=== PATIENT | male | born 1940 | race Caucasian/White ===

== ENCOUNTER 2023-06-17 10:25 | Emergency (ER) | payer OTHER ==
[~2023-06-17] VITALS: Ht 172.7 cm; Wt 88.5 kg
[2023-06-17 11:07] LABS: BASOPHILS ABSOLUTE AUTO 0.04 K/mm3 (0.00-0.23); BASOPHILS PERCENT AUTO 1 % (0-2); EOSINOPHILS ABSOLUTE AUTO 0.15 K/mm3 (0.00-0.68); EOSINOPHILS PERCENT AUTO 2 % (0-6); Hematocrit 36.4 % (37.0-53.0); Hemoglobin 11.9 g/dL (13.5-17.5); IMMATURE GRAN ABSOLUTE AUTO 0.04 K/mm3 (0.00-0.10); IMMATURE GRAN PERCENT AUTO 1 % (0-1); LYMPHOCYTES PERCENT AUTO 22 % (21-46); MONOCYTES ABSOLUTE AUTO 0.52 K/mm3 (0.16-1.47); MONOCYTES PERCENT AUTO 8 % (4-13); Mean Corpuscular HGB 31.5 pg (26.0-34.0); Mean Corpuscular HGB Conc 32.7 g/dL (31.5-36.5); Mean Corpuscular Volume 96 fL (80-100); Mean Platelet Volume 9.7 fL (9.1-12.4); NEUTROPHILS ABSOLUTE AUTO 4.48 K/mm3 (1.96-9.15); NEUTROPHILS PERCENT AUTO 67 % (41-73); Platelet Count 225 K/mm3 (150-400); RDW Coefficient Variation 13.7 % (11.7-14.2); RDW Standard Deviation 48.6 fL (35.1-46.3); Red Blood Cell Count 3.78 M/mm3 (4.30-5.90); White Blood Cell Count 6.73 K/mm3 (4.00-11.30)
[2023-06-17 13:24] LABS: Source, Urine Voided
[2023-06-17] MEDS ORDERED: ATOR10 PO (13:25)
[2023-06-17 13:29] LABS: Appearance, Urine Clear (Clear); Bilirubin, Urine Neg (Neg); Blood, Urine Neg (Neg); Color, Urine Amber (P-Yellow); Glucose Qualitative, Urine Neg (Neg); Ketones, Urine Neg (Neg); Leukocyte Esterase, Urine Neg (Neg); Nitrite, Urine Neg (Neg); Protein, Urine 2+ (Neg); Urobilinogen, Urine 1+ (Normal)
[2023-06-17 13:42] LABS: Bacteria Few /hpf; Mucus Light (0-Heavy); Red Blood Cells, Urine 0-2 /hpf (0-2); Squamous Epithelial Cells Few /hpf (Few)
[2023-06-17 14:03] LABS: Albumin, Blood 3.3 g/dL (3.4-5.0); Albumin/Globulin Ratio 0.9 (0.8-1.8); Bilirubin, Total 0.8 mg/dL (0.1-1.0); Bun/Creatinine Ratio 15.8 (12.0-20.0); Calcium, Blood 8.7 mg/dL (8.5-10.1); Creatinine, Blood 1.33 mg/dL (0.60-1.20); Globulin, Blood 3.7 g/dL (2.2-4.0); Thyroid Stimulating Hormone 0.68 uIU/mL (0.360-4.800)
[2023-06-17 14:35] VITALS: BP 136/95
== END 2023-06-17 14:36 | disposition home or self-care (01) ==
LOC: ER 10:25
PROVIDERS: Emergency Medicine
DX: R41.0 Disorientation, unspecified (principal); Z79.899 Other long term (current) drug therapy
CPT/HCPCS: 80053; 81001; 84443; 85025

== ENCOUNTER 2023-06-21 10:09 | Emergency (ER) | payer OTHER ==
[~2023-06-21] VITALS: Ht 172.7 cm; Wt 88.5 kg
[~2023-06-21 10:09] MED LIST: ATOR10 PO
[2023-06-21 10:39] LABS: BASOPHILS ABSOLUTE AUTO 0.05 K/mm3 (0.00-0.23); BASOPHILS PERCENT AUTO 0 % (0-2); EOSINOPHILS ABSOLUTE AUTO 0.08 K/mm3 (0.00-0.68); EOSINOPHILS PERCENT AUTO 1 % (0-6); Hematocrit 35.9 % (37.0-53.0); Hemoglobin 11.6 g/dL (13.5-17.5); IMMATURE GRAN ABSOLUTE AUTO 0.06 K/mm3 (0.00-0.10); IMMATURE GRAN PERCENT AUTO 1 % (0-1); LYMPHOCYTES ABSOLUTE AUTO 1.34 K/mm3 (0.84-5.20); LYMPHOCYTES PERCENT AUTO 12 % (21-46); MONOCYTES ABSOLUTE AUTO 1.02 K/mm3 (0.16-1.47); MONOCYTES PERCENT AUTO 9 % (4-13); Mean Corpuscular HGB 31.4 pg (26.0-34.0); Mean Corpuscular HGB Conc 32.3 g/dL (31.5-36.5); Mean Corpuscular Volume 97 fL (80-100); Mean Platelet Volume 9.7 fL (9.1-12.4); NEUTROPHILS ABSOLUTE AUTO 8.65 K/mm3 (1.96-9.15); NEUTROPHILS PERCENT AUTO 77 % (41-73); Platelet Count 237 K/mm3 (150-400); RDW Standard Deviation 49.7 fL (35.1-46.3)
[2023-06-21 10:55] LABS: Source, Urine Clean Catch
[2023-06-21 11:00] LABS: Albumin, Blood 3.2 g/dL (3.4-5.0); Albumin/Globulin Ratio 0.9 (0.8-1.8); Bilirubin, Total 0.6 mg/dL (0.1-1.0); Calcium, Blood 8.7 mg/dL (8.5-10.1); Creatinine, Blood 1.2 mg/dL (0.60-1.20); Globulin, Blood 3.6 g/dL (2.2-4.0); Potassium, Blood 4.2 mmol/L (3.5-5.5); Total Protein, Blood 6.8 g/dL (6.4-8.2)
[2023-06-21 11:02] LABS: Bilirubin, Urine Neg (Neg); Blood, Urine Neg (Neg); Glucose Qualitative, Urine Neg (Neg); Ketones, Urine Neg (Neg); Leukocyte Esterase, Urine Neg (Neg); Nitrite, Urine Neg (Neg); Protein, Urine 2+ (Neg); Urobilinogen, Urine 1+ (Normal)
[2023-06-21 12:06] LABS: Appearance, Urine Hazy (Clear); Bacteria Not Seen /hpf; Color, Urine Yellow (P-Yellow); Red Blood Cells, Urine Not Seen /hpf (0-2); Squamous Epithelial Cells Rare /hpf (Few); White Blood Cells, Urine Not Seen /hpf (0-5)
[2023-06-21 14:23] VITALS: BP 171/79
== END 2023-06-21 14:20 | disposition home or self-care (01) ==
LOC: ER 10:09
PROVIDERS: Emergency Medicine
DX: R53.81 Other malaise (principal); D64.9 Anemia, unspecified; W18.30XA Fall on same level, unspecified, initial encounter; Z79.899 Other long term (current) drug therapy
CPT/HCPCS: 71045; 80053; 81001; 82550; 84484; 85025; 93005; 93010; 96374; 99285-25; J0360

== ENCOUNTER 2023-08-23 12:54 | Emergency (ER) | payer OTHER ==
[~2023-08-23] VITALS: Ht 172.7 cm; Wt 88.5 kg
[2023-08-23 14:27] LABS: BASOPHILS ABSOLUTE AUTO 0.04 K/mm3 (0.00-0.23); BASOPHILS PERCENT AUTO 1 % (0-2); EOSINOPHILS ABSOLUTE AUTO 0.12 K/mm3 (0.00-0.68); EOSINOPHILS PERCENT AUTO 2 % (0-6); Hematocrit 29.4 % (37.0-53.0); Hemoglobin 9.2 g/dL (13.5-17.5); IMMATURE GRAN ABSOLUTE AUTO 0.02 K/mm3 (0.00-0.10); IMMATURE GRAN PERCENT AUTO 0 % (0-1); LYMPHOCYTES ABSOLUTE AUTO 1.14 K/mm3 (0.84-5.20); LYMPHOCYTES PERCENT AUTO 22 % (21-46); MONOCYTES ABSOLUTE AUTO 0.41 K/mm3 (0.16-1.47); MONOCYTES PERCENT AUTO 8 % (4-13); Mean Corpuscular HGB 31.7 pg (26.0-34.0); Mean Corpuscular HGB Conc 31.3 g/dL (31.5-36.5); Mean Corpuscular Volume 101 fL (80-100); Mean Platelet Volume 10.5 fL (9.1-12.4); NEUTROPHILS ABSOLUTE AUTO 3.44 K/mm3 (1.96-9.15); NEUTROPHILS PERCENT AUTO 67 % (41-73); Platelet Count 162 K/mm3 (150-400); RDW Coefficient Variation 15.8 % (11.7-14.2); RDW Standard Deviation 58.5 fL (35.1-46.3); White Blood Cell Count 5.17 K/mm3 (4.00-11.30)
[2023-08-23 14:56] LABS: Albumin, Blood 3.1 g/dL (3.4-5.0); Albumin/Globulin Ratio 0.9 (0.8-1.8); Bilirubin, Total 0.2 mg/dL (0.1-1.0); Bun/Creatinine Ratio 24.2 (12.0-20.0); Creatinine, Blood 1.49 mg/dL (0.60-1.20); Globulin, Blood 3.3 g/dL (2.2-4.0); Potassium, Blood 4.3 mmol/L (3.5-5.5); Total Protein, Blood 6.4 g/dL (6.4-8.2)
[2023-08-23 15:25] LABS: Source, Urine Clean Catch
[2023-08-23 15:29] LABS: Appearance, Urine Clear (Clear); Bilirubin, Urine Neg (Neg); Blood, Urine Neg (Neg); Color, Urine Yellow (P-Yellow); Glucose Qualitative, Urine Neg (Neg); Ketones, Urine Neg (Neg); Leukocyte Esterase, Urine Neg (Neg); Nitrite, Urine Neg (Neg); Protein, Urine Neg (Neg); Specific Gravity, Urine 1.015 (1.003-1.022); Urobilinogen, Urine NORM (Normal)
[2023-08-23 16:30] VITALS: BP 125/56
== END 2023-08-23 16:36 | disposition home or self-care (01) ==
LOC: ER 12:54
PROVIDERS: Student in an Organized Health Care Education/Training Program
DX: R41.0 Disorientation, unspecified (principal); D64.9 Anemia, unspecified; N18.9 Chronic kidney disease, unspecified; Z79.899 Other long term (current) drug therapy
CPT/HCPCS: 80053; 81003; 85025; 93005; 93010; 99285-25

== ENCOUNTER 2024-03-19 10:25 | Inpatient (IN) | payer OTHER ==
[2024-03-19] VITALS (9 sets, daily range): BP systolic 97–134; BP diastolic 53–83
[~2024-03-19] VITALS: Ht 188 cm; Wt 105.5 kg
[~2024-03-19 10:25] MED LIST changes: +ALBU90OI INH; +ALLO300 PO; +AMLO5 PO; +B-12500 MC2 PO; +CAPSAICIN60 G1 TOP; +DULERA 100 MCG/13 GM INH; +HUMALOG KW100 UNIT/1 SC; +METF500 PO; +MULTI-VITAMIN1 EAC2 PO; +POTA10T PO; +QUET25 PO; +SENNA LAXATIVE8.6 MG PO; +TORSE20 PO; +[UNRECOGNIZED DRUG - CODE] TOP
[2024-03-19 11:04] LABS: BASOPHILS ABSOLUTE AUTO 0.04 K/mm3 (0.00-0.23); BASOPHILS PERCENT AUTO 1 % (0-2); EOSINOPHILS PERCENT AUTO 5 % (0-6); Hematocrit 32.8 % (37.0-53.0); Hemoglobin 10.2 g/dL (13.5-17.5); IMMATURE GRAN ABSOLUTE AUTO 0.02 K/mm3 (0.00-0.10); IMMATURE GRAN PERCENT AUTO 0 % (0-1); LYMPHOCYTES ABSOLUTE AUTO 0.92 K/mm3 (0.84-5.20); LYMPHOCYTES PERCENT AUTO 16 % (21-46); MONOCYTES ABSOLUTE AUTO 0.59 K/mm3 (0.16-1.47); MONOCYTES PERCENT AUTO 10 % (4-13); Mean Corpuscular HGB 31.8 pg (26.0-34.0); Mean Corpuscular HGB Conc 31.1 g/dL (31.5-36.5); Mean Corpuscular Volume 102 fL (80-100); Mean Platelet Volume 10.1 fL (9.1-12.4); NEUTROPHILS ABSOLUTE AUTO 3.87 K/mm3 (1.96-9.15); NEUTROPHILS PERCENT AUTO 68 % (41-73); Platelet Count 111 K/mm3 (150-400); RDW Coefficient Variation 16.5 % (11.7-14.2); RDW Standard Deviation 61.7 fL (35.1-46.3); Red Blood Cell Count 3.21 M/mm3 (4.30-5.90); White Blood Cell Count 5.74 K/mm3 (4.00-11.30)
[2024-03-19] MEDS ORDERED: CefTRIAXone Sodium 1,000 MG in NS 100 ML IV ONE (11:15)
[2024-03-19] MEDS ORDERED: Azithromycin 500 MG in NS 250 ML IV ONE (11:15)
[2024-03-19 11:37] LABS: Albumin/Globulin Ratio 0.9 (0.8-1.8); Bilirubin, Total 0.4 mg/dL (0.1-1.0); Bun/Creatinine Ratio 30.3 (12.0-20.0); Calcium, Blood 8.9 mg/dL (8.5-10.1); Creatinine, Blood 1.55 mg/dL (0.60-1.20); Globulin, Blood 3.5 g/dL (2.2-4.0); Potassium, Blood 5.1 mmol/L (3.5-5.5); Total Protein, Blood 6.5 g/dL (6.4-8.2)
[2024-03-19] MEDS ORDERED: OxyCODONE HCL 5 MG TAB PO PRN (13:00)
[2024-03-19] MEDS ORDERED: Naloxone HCl 0.4MG / ML 1ML Vial IV PRN (13:00)
[2024-03-19] MEDS ORDERED: Ondansetron HCl 2 MG / ML 2ML Vial IV PRN (13:00)
[2024-03-19] MEDS ORDERED: Acetaminophen 325 MG TABLET PO PRN (13:00)
[2024-03-19] MEDS ORDERED: Albuterol HFA200 ACT/6.7 GM INH INH PRN (13:10)
[2024-03-19 13:42] LABS: Source, Urine Foley catheter
[2024-03-19 13:50] LABS: Appearance, Urine Clear (Clear); Bilirubin, Urine Neg (Neg); Blood, Urine 1+ (Neg); Glucose Qualitative, Urine Neg (Neg); Ketones, Urine Neg (Neg); Leukocyte Esterase, Urine 1+ (Neg); Nitrite, Urine Neg (Neg); Protein, Urine Neg (Neg); Urobilinogen, Urine NORM (Normal)
[2024-03-19] MEDS ORDERED: Lactated Ringer's 1,000 ML IV SCH ×2 (13:50→20:45)
[2024-03-19 14:07] LABS: Color, Urine Pale Yellow (P-Yellow)
[2024-03-19 14:08] LABS: Bacteria Few /hpf; Red Blood Cells, Urine 0-2 /hpf (0-2); Squamous Epithelial Cells Not Seen /hpf (Few)
[2024-03-19] MEDS ORDERED: AZIT200SU PO (15:06)
[2024-03-19] MEDS ORDERED: AMOCLA875 PO (15:07)
[2024-03-19] MEDS ORDERED: Carvedilol12.5 MG PO (15:09)
[2024-03-19] MEDS ORDERED: Fosinopril Sodi20 MG PO (15:09)
[2024-03-19] MEDS ORDERED: LACT PO (15:10)
[2024-03-19] MEDS ORDERED: OMEP20ER PO (15:11)
[2024-03-19] MEDS ORDERED: Acetaminophen650 M1 PO (15:11)
[2024-03-19] MEDS ORDERED: ALBU2.5V5 INH (15:13)
[2024-03-19] MEDS ORDERED: Albuterol 2.5 MG/3 ML VIAL INH PRN (15:45)
--- NOTE | 2024-03-19 16:16 | NUR ---
arrival to pcu patient arrived to pcu at 1435. patient transfered to pcu bed via slider sheet. per report patient is bedbound and uses a lift. has home lift under patient and removed and put in home belongings. patient is able to tell me he is at the hospital, in [place], but does not know why he is here, oriented x3. patient is sleepy when arriving but able to communicate, patient becoming more lethargic and stating he is cold. patient is diaphortic/clammy and cool to the touch. temporal temperature taken and read 92.5. rectal probe in place and temperature is reading 91.5 for core temperature. warm blankets in place and bear hugger in place. patient lips are purple in apperance. spo2 >90% on 3l intitially and have titrated to 5l nc. md calderon and team are aware of patient temperature, blood pressure and heart rate-tele sinusbrady 40s. current temperature is 92.8 with rectal probe. 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 see admit shift assessment for further detials echo is currently being done. plan of care up to date at this time
[2024-03-19] MEDS ORDERED: Atropine Sulfate 0.1 MG/ML 10ML SYR IV PRN (16:20)
[2024-03-19] MEDS ORDERED: Capsaicin 0.025% Cream TOP PRN (16:35)
[2024-03-19] MEDS ORDERED: Midodrine 5 MG Tab PO PRN (16:35)
[2024-03-19] MEDS ORDERED: Mometasone/Formoterol MDI 100/5 mcg 13 GM INH SCH (16:40)
[2024-03-19] MEDS ORDERED: Furosemide 10 MG/ML 4ML Vial IV SCH (17:00)
--- NOTE | 2024-03-19 17:21 | NUR ---
SHIFT SUMMARY patient temperature continues to improve with bear hugger in place. currently at 94.4. see previous note. plan remains up to date and no acute changes since previous note
[2024-03-19] MEDS ORDERED: Furosemide 40 MG Tab PO SCH (18:00)
[2024-03-19] MEDS ORDERED: Lactobacil 2-S.Thermo-Bifido 1 1 Cap PO SCH (21:00)
[2024-03-19] MEDS ORDERED: Docusate Sodium 100 MG Cap PO SCH (21:00)
[2024-03-19] MEDS ORDERED: QUEtiapine Fumarate 25 MG Tab PO SCH (21:00)
[2024-03-19] MEDS ORDERED: Lisinopril 10 MG Tab PO SCH (21:00)
[2024-03-20] VITALS (11 sets, daily range): BP systolic 129–167; BP diastolic 56–84
[2024-03-20] MEDS ORDERED: D5W-NS 1,000 ML IV SCH (01:05)
[2024-03-20 05:42] LABS: Albumin, Blood 2.8 g/dL (3.4-5.0); Albumin/Globulin Ratio 0.9 (0.8-1.8); Bilirubin, Total 0.4 mg/dL (0.1-1.0); Bun/Creatinine Ratio 26.8 (12.0-20.0); Calcium, Blood 8.6 mg/dL (8.5-10.1); Creatinine, Blood 1.64 mg/dL (0.60-1.20); Globulin, Blood 3.2 g/dL (2.2-4.0); Potassium, Blood 4.5 mmol/L (3.5-5.5)
[2024-03-20] MEDS ORDERED: Pantoprazole Sodium 40 MG Injection IV SCH (06:00)
[2024-03-20] MEDS ORDERED: Omeprazole 20 MG CapCR PO SCH (06:00)
--- NOTE | 2024-03-20 07:00 | NUR ---
ASSUME CARE: I have assumed care of this patient.
--- NOTE | 2024-03-20 07:25 | NUR ---
SHIFT SUMMARY AT BEGINNING OF SHIFT, PT VERY LETHARGIC, BRIEFLY OPENING EYES TO SOUND. PT NOT FOLLOWING COMMANDS, ORIENTED X0. THE SHIFT WENT ON, PT BECAME MORE ALERT, EYES OPENING SPONTANEOUSLY AND PT BEGINNING TO FOLLOW COMMANDS. PT'S SPEECH IS GARBLED/MUMBLED AT TIMES AND ANSWERS ARE NOT ALWAYS APPROPRIATE TO WHAT IS BEING ASKED. PT REORIENTED NEEDED. AT END OF SHIFT, PT ORIENTED X2; TO SELF AND PLACE. VSS; SBP 120-140'S, SR WITH RATE IN 60-70'S, TEMP 98.4-98.6, PT ON 3 LMP NC T/O SHIFT. O2 INCREASED TO 5 LPM WITH ACTIVITY OR DURING CARE IF NEEDED. MARTINEZ IN PLACE AND DRAINING TO GRAVITY; 2300 MLS UOP THIS SHIFT. NO BM, ATTENDS IN PLACE. COCCYX WITH REDNESS AND SMALL EXORIATION; MEPILEX PLACED. 0000 CBG 69; RESIDENT NOTIFIED. NEW ORDERS FOR D5WNS AT 100 MLS/HR. CBG MAINTAINING IN 80'S DURING SHIFT. PT NOT TOLERATING MUCH PO INTAKE AT THIS TIME. PT REPOSITIONED Q2 OR PRN. CALL LIGHT IN REACH, PT YET TO USE TO VERBALIZE NEEDS. WILL UPDATE ONCOMING RN
[2024-03-20] MEDS ORDERED: Carvedilol 3.125 MG Tab PO SCH (08:00)
[2024-03-20] MEDS ORDERED: Cyanocobalamin 500 MCG Tab PO SCH (09:00)
[2024-03-20] MEDS ORDERED: Enoxaparin 40 MG/0.4 ML SYR SC SCH (09:00)
[2024-03-20] MEDS ORDERED: Atorvastatin 10 MG Tab PO SCH (09:00)
[2024-03-20] MEDS ORDERED: Multivitamins 1 Tab PO SCH (09:00)
[2024-03-20] MEDS ORDERED: AmLODIPine Besylate 5 MG Tab PO SCH ×2 (09:00)
--- NOTE | 2024-03-20 09:45 | NUR ---
FAMILY UPDATE: Pt's daughter, Florence, called and updated. She notes that Liban uses a toddler cup with sip spout and soft diet at home due to history of aspiration. She also reports a history of delrium when hospitalized. Pt clears once home she notes.
[2024-03-20] MEDS ORDERED: CefTRIAXone Sodium 1,000 MG in NS 100 ML IV SCH (12:00)
[2024-03-20] MEDS ORDERED: NS 250 ML IV PRN (12:35)
[2024-03-20] MEDS ORDERED: Azithromycin 500 MG in NS 250 ML IV SCH (13:00)
--- NOTE | 2024-03-20 19:13 | NUR ---
SHIFT SUMMARY: Pt up in chair for most of day. Pt displaying frustration due to confusion. He continues to require reorientation and [facility] He has begun stating paranoid comments like, "Is this a place where you take people and never let them leave?" Pt's daughter updated via telephone and was able to talk to pt on the phone which helped his frutration. NPO status maintainted. Supplemental oxygen at 4L NC. Shore left due to 4 liter output in 12 hours and pt's psychological state.
[2024-03-20] MEDS ORDERED: Dextrose 10% 500 ML IV SCH (20:20)
--- NOTE | 2024-03-20 20:50 | NUR ---
PHYSICIAN CONTACT: THIS RN NOTIFIED OF PT'S 2000 CBG OF 67. CALL TO HOSPITALIST REGARDING NPO STATUS & CBG. ORDER RECEIVED TO START D10 DRIP @25 ML/HR. SEE EMAR.
[2024-03-21 00:23] VITALS: BP 155/80
[2024-03-21 04:17] VITALS: BP 176/71
[2024-03-21 04:20] LABS: BASOPHILS ABSOLUTE AUTO 0.05 K/mm3 (0.00-0.23); BASOPHILS PERCENT AUTO 1 % (0-2); EOSINOPHILS ABSOLUTE AUTO 0.27 K/mm3 (0.00-0.68); EOSINOPHILS PERCENT AUTO 6 % (0-6); Hematocrit 34.8 % (37.0-53.0); Hemoglobin 10.8 g/dL (13.5-17.5); IMMATURE GRAN ABSOLUTE AUTO 0.02 K/mm3 (0.00-0.10); IMMATURE GRAN PERCENT AUTO 0 % (0-1); LYMPHOCYTES ABSOLUTE AUTO 1.05 K/mm3 (0.84-5.20); LYMPHOCYTES PERCENT AUTO 22 % (21-46); MONOCYTES ABSOLUTE AUTO 0.71 K/mm3 (0.16-1.47); MONOCYTES PERCENT AUTO 15 % (4-13); Mean Corpuscular HGB 30.9 pg (26.0-34.0); Mean Corpuscular Volume 99 fL (80-100); Mean Platelet Volume 9.8 fL (9.1-12.4); NEUTROPHILS PERCENT AUTO 56 % (41-73); Platelet Count 107 K/mm3 (150-400); RDW Coefficient Variation 16.1 % (11.7-14.2); RDW Standard Deviation 58.6 fL (35.1-46.3)
[2024-03-21 04:42] LABS: Bun/Creatinine Ratio 23.2 (12.0-20.0); Creatinine, Blood 1.64 mg/dL (0.60-1.20); Potassium, Blood 3.9 mmol/L (3.5-5.5)
--- NOTE | 2024-03-21 05:56 | NUR ---
END OF SHIFT NOTE: PT HAS REMAINED CONFUSED T/O SHIFT. ORIENTED TO SELF AND DAUGHTER ONLY. PT AGITATED AT TIMES, FREQUENTLY YELLING OUT "HELP ME" AND REQUESTING TO [facility] TO [facility] PT DEMONSTRATING VISUAL HALLUCINATIONS, DESCRIBING AN "ORANGE CAT" ON HIS CHEST & A "MAN SITTING IN THAT CHAIR DRINKING A BEER" WHEN NO ONE ELSE IS PRESENT IN THE PT'S ROOM. CONTINUES TO YELL OUT, DOES NOT CALL APPROPRIATELY. HR 60-70'S, SINUS ON TELE. SBP 150-170'S, NO EVIDENCE OF CHEST PAIN/PRESSURE. SPO2 >93% ON 3L VIA NC. FREQUENT MOIST COUGH, MINIMAL SPUTUM PRODUCTION. AFEBRILE. MARTINEZ CATH IN PLACE, PATENT & DRAINING YELLOW URINE TO GRAVITY. D-10 INFUSING AT 25 ML/HR PER EMAR. PT REMAINS NPO STATUS PER SPEECH THERAPY; ORAL CARE PROVIDED PT IS AGREEABLE. REPOSITIONED Q2HRS T/O SHIFT. NO OTHER NEEDS AT THIS TIME, CALL LIGHT IN REACH. WILL REPORT TO ONCOMING RN.
[2024-03-21] MEDS ORDERED: Labetalol HCL 5 MG/ML 4ML Injection (Single Dose) IV PRN (10:20)
--- NOTE | 2024-03-21 10:27 | NUR ---
SHIFT ASSESSMENT ASSUMED CARE OF PT @ 0700, BEDSIDE REPORT RECEIVED FROM [facility] NURSE. PT ALERT TO PERSON & . OCCASONIALLY YELLING OUT. VERY DIFFICULT TO UNDERSTAND. PT HAVING TROUBLE REMAINING ON TASK, THINKS HE IS IN [place]. DIFFICULT TO REDIRECT WHEN HE IS RANTING. DOES FOLLOW COMMANDS, ABLE TO STAND WITH GAIT BELT WHILE WORKING WITH PHYSICAL THERAPY. VERY WEAK & SHAKY WHILE STANDING. REMAINS ON O2 VIA NC. D10 INFUSION CONTINUES DUE TO NPO STATUS. MARTINEZ CATH REMAINS PATENT, DRAINING YELLOW URINE. NO BM.
[2024-03-21 12:00] VITALS: BP 169/65
[2024-03-21] MEDS ORDERED: Azithromycin 500 MG in NS 250 ML IV ONE (12:55)
[2024-03-21 14:00] VITALS: BP 149/75
--- NOTE | 2024-03-21 14:30 | NUR ---
REPORT GIVEN TO MEDICAL FLOOR NURSE. PT TO BE TRANSPORTED VIA BED c KARRIE[facility].
--- NOTE | 2024-03-21 15:12 | NUR ---
LPT RECEIVED TO ROOM FROM PCU. PT TALKING, BUT CONFUSED, PLEASANT, LUNGS CLEAR T/O AT THIS TIME. ON 3L O2. H/R IRREG, MURMUR NOTED. +1 BLE. WATCHING TV AT THIS TIME. BED INLOW POSITION, CALL LITE IN REACH, BED ALARM ON FOR SAFETY
[2024-03-21 16:30] VITALS: BP 166/77
--- NOTE | 2024-03-21 17:43 | NUR ---
PT PLEASANT SINCE ADMIT TO FLOOR FROM PCU, STILL CONFUSED. CONTINUES TO BE NPO. FAILED SWALLOW EVAL. D-10 DRIP INFUSING PER ORDERS. VSS, UNDER LIMIT FOR TREATMENT. LUNGS CLEAR, RESP EASY, UNLABORED. ON 3L O2. H/R IRREG, MURMUR NOTED. NO OTHER NEW CONCERNS NOTED. BED IN LOW POSITION, CALL LITE IN REACH, BED ALARM ON FOR SAFETY
[2024-03-21 19:54] VITALS: BP 160/80
[2024-03-22 02:59] VITALS: BP 173/83
[2024-03-22 04:38] VITALS: BP 168/94
--- NOTE | 2024-03-22 05:41 | NUR ---
LUMBER CHAIN OFFBEARER SUMMARY PT A&O X 1, CONFUSED WITH GARBLED SPEECH THROUGHOUT THE SHIFT BUT HE WAS ABLE TO TELL ME HIS NAME AND BIRTHDAY. PT CONTINUED TO THINK HE WAS RIDING ON A BUS AND HAVE VISUAL HALLUCINATIONS ABOUT BEING ON A BUS AND POINTING TO THINGS IN [facility] ROOM. HE KEPT ASKING WHEN I WAS GOING TO LET HIM OFF. PT NOT REDIRECTABLE IN CONVERSATION. HE ALSO GREW ANGRY A FEW TIMES OVER NOT BEING ALLOWED FOOD OR DRINK AND CONTINUED TO BE CONFUSED OVER HIS NPO STATUS. HE ATTEMPTED TO GET OUT OF BED TO "GET FOOD." HE WAS OFFERED ORAL CARE AND HE DID SEEM TO LIKE THE [facility] ORAL SWABS. PT MARTINEZ DRAINING YELLOW URINE. +2 EDEMA NOTED TO BLE, LEGS ELEVATED. TELE S-AIDA 54 WITH 1ST DEG BLOCK/BBB. BP 173/83, LABETALOL GIVEN AT 0330 AND BP at 430 was 168/93. PT WAS AWAKE MOST OF THE NIGHT. 03/22/24 THERESA ROTHMAN RN
[2024-03-22 06:02] LABS: BASOPHILS ABSOLUTE AUTO 0.03 K/mm3 (0.00-0.23); BASOPHILS PERCENT AUTO 1 % (0-2); EOSINOPHILS ABSOLUTE AUTO 0.35 K/mm3 (0.00-0.68); EOSINOPHILS PERCENT AUTO 7 % (0-6); Hematocrit 36.7 % (37.0-53.0); Hemoglobin 11.5 g/dL (13.5-17.5); IMMATURE GRAN ABSOLUTE AUTO 0.02 K/mm3 (0.00-0.10); IMMATURE GRAN PERCENT AUTO 0 % (0-1); LYMPHOCYTES ABSOLUTE AUTO 1.07 K/mm3 (0.84-5.20); LYMPHOCYTES PERCENT AUTO 21 % (21-46); MONOCYTES ABSOLUTE AUTO 0.82 K/mm3 (0.16-1.47); MONOCYTES PERCENT AUTO 16 % (4-13); Mean Corpuscular HGB 30.7 pg (26.0-34.0); Mean Corpuscular HGB Conc 31.3 g/dL (31.5-36.5); Mean Corpuscular Volume 98 fL (80-100); Mean Platelet Volume 9.4 fL (9.1-12.4); NEUTROPHILS ABSOLUTE AUTO 2.81 K/mm3 (1.96-9.15); NEUTROPHILS PERCENT AUTO 55 % (41-73); Platelet Count 117 K/mm3 (150-400); RDW Coefficient Variation 15.5 % (11.7-14.2); RDW Standard Deviation 56.1 fL (35.1-46.3); Red Blood Cell Count 3.74 M/mm3 (4.30-5.90)
[2024-03-22 06:31] LABS: Bun/Creatinine Ratio 22.8 (12.0-20.0); Calcium, Blood 9.3 mg/dL (8.5-10.1); Creatinine, Blood 1.36 mg/dL (0.60-1.20); Potassium, Blood 3.7 mmol/L (3.5-5.5)
[2024-03-22 07:35] VITALS: BP 164/79
[2024-03-22] MEDS ORDERED: Furosemide 10 MG/ML 4ML Vial IV SCH (09:00)
--- NOTE | 2024-03-22 09:00 | NUR ---
PT PLEASANT CONFUSED. TALKS MUCH NONSENSE. ASKED IF I OWN THIS PLACE, ASKED IF I WAS A FLOUR WORKER, ASKED IF I COOK FOOD HERE. UNABLE TO ANSWER BASIC QUESTIONS. SOME VISUAL HALLUCINATIONS STATED. H/R IRREG, MURMUR NOTED. PER TELE NSR AT 65, TRACE EDEMA NOTED BLE. LUNGS CLEAR, RESP EASY, UNLABORED. ON 3L O2. BT X4 LASLAT BM NOT KNOWN BY PT. VOIDS MARTINEZ CATH. YELLOW FLUID DRAINING. BED BOUND AT THIS TIME. PCU STATES FAILED SWALLOW EVAL YEST, NPO AT THIS TIME. ON D-10 TO KEEP SUGARS UP. BED IN LOW POSITION, CALL LITE IN REACH, BED ALARM ON FOR SAFETY
--- NOTE | 2024-03-22 11:49 | NUR ---
SPOKE TO DR ARNOLDO ALANIZ PT NPO. WILL FOLLOW FOR ZACH HOOD
[2024-03-22 16:23] VITALS: BP 150/83
--- NOTE | 2024-03-22 18:29 | NUR ---
PT PLEASANT BUT FULLY CONFUSED. HALLUCINATING TODAY. DID GET CLEARED FOR DIET, PUREED, THICK LIQUIDS. DID TOLERATE PO MED THIS AFT WELL. DID TRY TO GET OUT OF BED ONCE THIS LATE AFT. ABLE TO GET BACK. WAS HALLUCINATING BICYCLES RUNNING OVER LITTLE BOY. SMOKE IN ROOM. SHOOTINGS. HANGINGS. NO OTHER CONCERNS NOTED. BED IN LOW POSITIOIN, CALL LITE IN REACH, BED ALARM ON FOR SAFETY
[2024-03-22 20:59] VITALS: BP 75/50
[2024-03-23 01:09] VITALS: BP 131/59
--- NOTE | 2024-03-23 06:21 | NUR ---
MICROELECTRONICS TECHNICIAN SUMMARY PT A&O X 1, CONFUSED WITH GARBLED NONSENSICAL SPEECH THROUGHOUT THE SHIFT BUT HE WAS ABLE TO TELL ME HIS NAME AND BIRTHDAY. PT CONTINUED TO GET OUT OF BED, PULL AT HIS LINES. HE SHOWED AGGRESSION WITH YELLING AT STAFF AND NOT LISTENING TO COMMANDS WHEN ATTEMPTING TO REDIRECT HIM. HE CONTINUED TO HAVE VISIAL HALLUCINATIONS AND DELUSIONS ABOUT FIRES,MOTORS ON CEILING NEEDING TO BE TURNED OFF AND KILLING PEOPLE AND BEING HUNG FOR IT. WE ATTEMPTED DISTRACTION, LETTING HIM CALL HIS DAUGHTER AND COMFORT MEASURES WITH NO SUCCESS. TO FROM [place] PERSONAL FINANCIAL ADVISOR OBTAINED FOR 4 POINT SOFT RESTRAINTS DUE TO HIM CONTINUING TO PULL OFF TELE AND PULL AT HIS MARTINEZ. ONCE RESTRAINTS WERE PLACED HE FELL ASLEEP. HE WAS OFFERED ORAL CARE AND HE REFUSED. PT MARTINEZ DRAINING YELLOW URINE. LUNGS CLEAR WITH AN OCCASIONAL NONPRODUCTIVE COUGH. TRACE EDEMA NOTED TO BLE, LEGS ELEVATED. TELE A-FIB 77. BP STABLE. 03/23/24 THERESA ROTHMAN RN
[2024-03-23 07:25] VITALS: BP 127/66
[2024-03-23] MEDS ORDERED: Dextrose 5% 250 ML IV SCH (08:40)
[2024-03-23 08:46] LABS: Bun/Creatinine Ratio 21.3 (12.0-20.0); Calcium, Blood 9.4 mg/dL (8.5-10.1); Creatinine, Blood 1.97 mg/dL (0.60-1.20); Potassium, Blood 3.7 mmol/L (3.5-5.5)
[2024-03-23] MEDS ORDERED: Torsemide 20 MG TAB PO SCH (09:00)
[2024-03-23] MEDS ORDERED: Dextrose 50% 50 ML Vial IV ONE (09:00)
[2024-03-23] MEDS ORDERED: Lactated Ringer's 1,000 ML IV SCH (11:00)
[2024-03-23] MEDS ORDERED: Furosemide 10 MG/ML 4ML Vial IV SCH ×2 (12:00→18:00)
[2024-03-23] MEDS ORDERED: Dextrose 5% 1,000 ML IV SCH (12:55)
[2024-03-23 15:38] VITALS: BP 139/75
[2024-03-23] MEDS ORDERED: LORazepam 2 MG/ML 1ML Injection IV ONE (15:50)
--- NOTE | 2024-03-23 17:06 | NUR ---
BEDSIDE SWALLOW EVAL: [facility] NURSING SWALLOW SCREEN COMPLETED BY THIS NURSE THIS SHIFT. PT ALERT; ORIENTED TO SELF, LOCATION, AND FAMILY. PT CALM; COOPERATIVE WITH SWALLOW EVAL. PT DRANK ONE TEASPOON OF WATER X3; NO DIFFICULTIES NOTED. PT THEN DRANK 3 OZ OF WATER, WITH NO ASPIRTION OR SWALLOWING DIFFICULTIES NOTED. PT WAS THEN GIVEN 1 CONTAINER OF PUDDING; PUDDING WAS SAFELY SWALLOW WHILE MAINTAINING ALERTNESS. PT THEN CONSUMED ONE CONTAINER OF YOGURT; ALL SPOONFULS WERE SAFELY CONSUMED WITH NO ASPIRTION OR CHOKING. ORAL CAVITY WAS INSPECTED, WITH NO POCKETING NOTED. SWALLOW SCREEN TOOL SAFELY COMPLETED. WCTM.
--- NOTE | 2024-03-23 19:10 | NUR ---
DAY SHIFT SUMMARY: PT MENTATION IMPROVING T/O SHIFT. PT A&O X 2-3. PT IN 4-POINT RESTRAINTS AT START OF SHIFT; PT REMOVED FROM ALL RESTRAINTS AT 1200; PT COOPERATIVE WITH CARE; NO ATTEMPTS TO GET OOB; NO ATTEMPTS TO PULL O2 OR IV. BEDSIDE SWALLOW EVAL COMPLETED THIS SHIFT; SEE NURSE'S NOTE; BARIUM SWALLOW PLANNED FOR 03/24. MARTINEZ IN PLACE; CLEAR YELLOW URINE; DRAINING TO GRAVITY. TELE IN PLACE; A-FIB @ 80 DURING MORNING ASSESSMENT. O2 @ 3L VIA NASAL CANNULA. IV ABX CONTINUING. WCTM.
[2024-03-23 19:45] VITALS: BP 105/70
--- NOTE | 2024-03-24 01:23 | NUR ---
NOTIFIED BY U CYTOTECHNOLOGIST/HISTOTECHNOLOGIST THAT PT HAD 2.3 SECOND PAUSE. CHECKED ON PT AND PT SLEEPING SOUNDLY RUNNING AFIB IN 60'S.
[2024-03-24 05:45] VITALS: BP 125/69
[2024-03-24 06:10] LABS: BASOPHILS ABSOLUTE AUTO 0.05 K/mm3 (0.00-0.23); BASOPHILS PERCENT AUTO 1 % (0-2); EOSINOPHILS ABSOLUTE AUTO 0.39 K/mm3 (0.00-0.68); EOSINOPHILS PERCENT AUTO 6 % (0-6); Hematocrit 35.6 % (37.0-53.0); Hemoglobin 11.4 g/dL (13.5-17.5); IMMATURE GRAN ABSOLUTE AUTO 0.01 K/mm3 (0.00-0.10); IMMATURE GRAN PERCENT AUTO 0 % (0-1); LYMPHOCYTES ABSOLUTE AUTO 1.62 K/mm3 (0.84-5.20); LYMPHOCYTES PERCENT AUTO 25 % (21-46); MONOCYTES ABSOLUTE AUTO 0.89 K/mm3 (0.16-1.47); MONOCYTES PERCENT AUTO 14 % (4-13); Mean Corpuscular HGB 31.1 pg (26.0-34.0); Mean Corpuscular Volume 97 fL (80-100); Mean Platelet Volume 10.2 fL (9.1-12.4); NEUTROPHILS ABSOLUTE AUTO 3.53 K/mm3 (1.96-9.15); NEUTROPHILS PERCENT AUTO 54 % (41-73); Platelet Count 118 K/mm3 (150-400); RDW Coefficient Variation 15.2 % (11.7-14.2); RDW Standard Deviation 54.8 fL (35.1-46.3); Red Blood Cell Count 3.66 M/mm3 (4.30-5.90); White Blood Cell Count 6.49 K/mm3 (4.00-11.30)
--- NOTE | 2024-03-24 06:17 | NUR ---
SHIFT SUMMARY NOC PT A/O TO SELF. PLEASANTLY CONFUSED AND COOPERATIVE WITH CARE. VSS. HS CBG 116 CNI. PT ON TELE RUNNING AFIB IN 60'S. NOTIFIED BY PCU PSYCH NP THAT PT HAD BRIEF PAUSE OF 2.3 SECONDS, THEN RESUMED AFIB. ON O2 3L/NC SPO2 >92%. PT RECEIVED BEDTIME DOSE OF SEROQUEL AND HAS SLEPT SOUNDLY T/O SHIFT. ONE TIME BAG OF D5W NOW COMPLETE. PT HAS MARTINEZ IN PLACE DRAINING YELLOW URINE TO GRAVITY. PT CURRENTLY RESTING WITH BED ALARM ON, BED IN LOWEST POSITION, AND CALL LIGHT WITHIN REACH.
[2024-03-24 06:34] LABS: Bun/Creatinine Ratio 24.4 (12.0-20.0); Calcium, Blood 8.6 mg/dL (8.5-10.1); Creatinine, Blood 2.05 mg/dL (0.60-1.20); Potassium, Blood 3.7 mmol/L (3.5-5.5)
[2024-03-24 07:31] VITALS: BP 136/69
[2024-03-24] MEDS ORDERED: Torsemide 20 MG TAB PO SCH (09:00)
[2024-03-24 15:56] VITALS: BP 117/75
[2024-03-24 17:40] VITALS: BP 132/80
--- NOTE | 2024-03-24 18:44 | NUR ---
DAY SHIFT SUMMARY: PT ALERT TO SELF & LOCATION; OCCASIONALLY IRRITABLE; COOPERATIVE WITH CARE. NO C/O PAIN THIS SHIFT. SWALLOW EVAL THIS SHIFT; SEE AIRPLANE REFUELER NOTE; PT IS NOW A FEEDER; COOPERATIVE WITH FEEDING. TELE IN PLACE; A-FIB @ 84 PER DEVELOPMENT GEOLOGIST DURING MORNING ASSESSMENT. O2 @ 2L. PT UP WITH 2-ASSIST TO BSC; LARGE BM THIS SHIFT. MARTINEZ CATHETER IN PLACE; DRAINING CLEAR YELLOW URINE TO GRAVITY. IV ABX CONTINUING. BED LOW & LOCKED; CALL LIGHT WITHIN REACH; WCTM.
[2024-03-24 19:56] VITALS: BP 116/72
[2024-03-25 03:44] VITALS: BP 123/79
--- NOTE | 2024-03-25 05:24 | NUR ---
SHIFT SUMMARY PT A&OX1. PLEASANTLY CONFUSED AND EASILY REDIRECTABLE. NO C/O PAIN. PT ABLE TO SLEEP FOR SEVERAL HOURS BUT UPON WAKING AROUND 0200 PT BEGAN PULLING AT LINES. PT PULLED OUT IV AND NEW ONE PLACE. MARTINEZ STAT LOCK WAS ALSO REPLACED D/T OLD ONE NO LONGER IN PLACE. PT TURNED Q2. NO EVENTS ON TELE. VSS BUT PT DOES DESAT TO THE HIGH 80's IF OXYGEN IS PULLED OFF. BED ALARM ON. BED IN LOWEST POSITION AND CALL LIGHT IN REACH.
[2024-03-25 06:05] LABS: BASOPHILS ABSOLUTE AUTO 0.05 K/mm3 (0.00-0.23); BASOPHILS PERCENT AUTO 1 % (0-2); EOSINOPHILS ABSOLUTE AUTO 0.46 K/mm3 (0.00-0.68); EOSINOPHILS PERCENT AUTO 7 % (0-6); Hematocrit 35.2 % (37.0-53.0); Hemoglobin 11.1 g/dL (13.5-17.5); IMMATURE GRAN ABSOLUTE AUTO 0.03 K/mm3 (0.00-0.10); IMMATURE GRAN PERCENT AUTO 0 % (0-1); LYMPHOCYTES ABSOLUTE AUTO 1.59 K/mm3 (0.84-5.20); LYMPHOCYTES PERCENT AUTO 23 % (21-46); MONOCYTES PERCENT AUTO 16 % (4-13); Mean Corpuscular HGB 31.1 pg (26.0-34.0); Mean Corpuscular HGB Conc 31.5 g/dL (31.5-36.5); Mean Corpuscular Volume 99 fL (80-100); Mean Platelet Volume 10.5 fL (9.1-12.4); NEUTROPHILS ABSOLUTE AUTO 3.58 K/mm3 (1.96-9.15); NEUTROPHILS PERCENT AUTO 53 % (41-73); Platelet Count 107 K/mm3 (150-400); RDW Coefficient Variation 14.9 % (11.7-14.2); RDW Standard Deviation 53.9 fL (35.1-46.3); Red Blood Cell Count 3.57 M/mm3 (4.30-5.90); White Blood Cell Count 6.81 K/mm3 (4.00-11.30)
[2024-03-25 06:32] LABS: Bun/Creatinine Ratio 25.5 (12.0-20.0); Calcium, Blood 8.8 mg/dL (8.5-10.1); Creatinine, Blood 2.04 mg/dL (0.60-1.20); Potassium, Blood 3.4 mmol/L (3.5-5.5)
--- NOTE | 2024-03-25 07:23 | NUR ---
PT WAS PLEASANTLY CONFUSED MOST OF THE NIGHT, HOWEVER, AROUND 0600 PT BECAME FIXATED ON HIS SHOES AND CLOTHES THAT HE SAID WHERE OUTSIDE ON THE PAVEMENT. WHEN THIS NURSE TRIED TO ASSURE HIM THAT HIS CLOTHES WOULD GO HIM WITH HIM, PT BECAME AGITATED AND SARCASTIC. PT STATED THINGS SUCH WE "ARE ALL KILLERS" AND WHEN WATER WAS OFFERED HE ASKED, "WHAT, IS IT POISION". PT ATTEMPTED TO GET OUT OF BED AND WAS PULLING AT HIS MARTINEZ LINE AT TIMES. PT COULD NOT BE REDIRECTED OR CALMED. PT WAS ALSO YELLING "HELP" AT TIMES EVEN WHEN A NURSE WAS IN THE ROOM. BED ALARM ON. REPORT GIVEN TO ONCOMING NURSE.
--- NOTE | 2024-03-25 07:35 | NUR ---
CALLED DR RIDER- AT THE TIME OF BEDSIDE REPORT, THE PT IS SCREAMING OUT FOR HELP. HE IS VERY AGITATED, HE THINKS THIS RN IS A MAN IN DISGUISE AND AN ALIEN. PT TALKING TO PEOPLE NOT PRESENT. HE HAS HIS HOME CLOTHES HE HAS ATTEMPTED TO PUT ON. HE SCREAMS FOR HELP EVEN WITH STAFF IN THE ROOM. WHEN HELP IS OFFERED HE BELIEVES STAFF ARE ATTEMPTIMNG TO HARM HIM OR PLANNING "TERRIBLE THINGS." PT HAS NO PRN ORDERS FOR MEDS FOR AGGITATION. CALLED AND REQUESTED SAID. STATES SHE HAS PLACED AN ORDER. WILL WAIT FOR THE ORDER TO BE POPULATED AND VERIFIED BY PHARMACY. PROVIDED PT DAUGHTER'S PHONE NUMBER TO THE
[2024-03-25] MEDS ORDERED: Potassium Chloride 20 MEQ TabCR PO ONE ×2 (08:00→10:25)
[2024-03-25] MEDS ORDERED: QUEtiapine Fumarate 25 MG Tab PO PRN (08:10)
--- NOTE | 2024-03-25 08:13 | NUR ---
CALLED DR GOTTLIEB- PT CONTINUES TO SCREAM FOR HELP ORDER FINALLY ARRIVED FOR 12.5 MG PO SEROQUEL. PT REFUSES TO ALLOW THIS RN TO PLACE O2 IN HIS NOSE, PROVIDE HIM WITH ANYTHING PO, THREATENS STAFF WITH AGRESSION WHEN THEY TRY TO DO BLOOD SUGAR CHECK. PT WILL NOT TAKE PO MEDS FROM THIS RN. SPOKE TO DR GOTTLIEB AT THIS TIME, RECIEVED IM [id number] ORDER.
[2024-03-25] MEDS ORDERED: OLANZapine 10 MG Vial IM ONE (09:00)
[2024-03-25] MEDS ORDERED: OLANZapine 10 MG Vial IM PRN (09:00)
[2024-03-25 10:06] VITALS: BP 137/86
--- NOTE | 2024-03-25 11:27 | NUR ---
SPOKE TO PT DAUGHTER- PER THE PT DAUGHTER THE PT HAS HAD THE MARTINEZ CATH IN PLACE FOR MONTHS. THE [facility] PROVIDERS HAVE ATTEMPTED TO REMOVE THE MARTINEZ AND THE PT IS UNABLE TO VOID WITHOUT IT. CALLED DR GOTTLIEB AND SPOKE TO HER. SHE IS AWARE IT IS A CHRONIC MARTINEZ. ORDER RECIEVED TO NOT DC THE MARTINEZ.
--- NOTE | 2024-03-25 12:20 | NUR ---
Spiritual Care Visit | Pt. Request Pt. is awake and sitting in his recliner. Pt. welcomes my visit but is unsettled by a fear that those in the hallway are "trying to kill him." Pt. displays evidence of delusion and confusion. Seek to normalize the Pt. expereience. The Pt. verbalized that he was a [place] . Listened with interest and empathy, while thanking the Pt. for his service. Pt. verbalized a request to get back to bed, and he attempted to get up, when they alarms went off. Prayed with the Pt. Will remain available to Pt. as needed.
[2024-03-25 15:06] VITALS: BP 131/91
--- NOTE | 2024-03-25 19:32 | NUR ---
SHIFT SUMMMARY- PT ALERT AND ORIENTED TO SELF. HE HAS HALLUCINATED ALL DAY. THIS MORNING HE WAS AGGITATED AND RECIEVED A DOSE OF IM ZYPREXA. PT CONTINUED FOR ABOUT AN HOUR AND A HALF TO SCREAM AND YELL "HELP!" REGUARDLESS OF WHO WAS PRESENT IN HIS ROOM. AFTER THE MEDS KICKED IN HE WAS PLEASENTLY CONFUSED. BEDSIDE REPORT COMPLETED WITH NIGHT RN. PT SITTING UP IN THE RECLINER, CHRONIC MARTINEZ IN PLACE PATENT AND DRAINING TO GRAVITY. PT HAD DECLINED TO GO TO BED WHEN STAFF OFFERED TO ASSIST HIM TO BED. PT IS GETTING SLEEPY. PASSED ON TO NIGHT RN THE PT WILL GET MORE DIFFICULT TO TRANSFER HE GETS MORE SLEEPY. SHE IS AWARE. PT AGREED HE WILL GO TO BED AT THE TIME OF EVENING VITALS.
[2024-03-25 19:43] VITALS: BP 135/57
[2024-03-26 05:13] VITALS: BP 166/70
--- NOTE | 2024-03-26 05:58 | NUR ---
SHIFT SUMMARY PT ALERT TO SELF. AGITATED AND PARINOID AT START OF SHIFT. PT HELPED BACK TO BED FROM CHAIR AND IS A 2 MAX ASSIST WITH GB AND FWW. HAD SOME DIFFICULTY FOLLOWING DIRECTIONS. PT ATTMEPTED TO GET OOB T/O NIGHT. SEROQUEL GIVEN PER EMAR WITH LITTLE EFFECT. PT STILL CONTINUED TO ATTEMPT OOB AND WOULD GET FRUSTRATED WITH STAFF ASSISTING HIM BACK TO BED. 5MG OF ZYPREXA GIVEN. PT STILL AWAKE T/O NIGHT AND ATTMEPTING OOB. HOWEVER, PT LESS IRRITABLE BUT HAS BEEN TALKING TO HIMSELF AND HALLUCINATING. PT REMAINS OF 2L OF OXYGEN BUT HAS BEEN PULLING OFF T/O NIGHT. PT ALSO ATTEMPTING TO PULL AT MARTINEZ CATH TUBING AT TIMES. ATTMEPTED TO CALL DAUGHTER AROUND 2200 D/T PT'S AGITATION ABOUT NEEDING TO TALK TO DAUGHTER. PT DID NOT SLEEP AT ALL DURING THE NIGHT. VSS. BED ALARM ON. BED IN LOWEST POSITION AND CALL LIGHT IN REACH.
[2024-03-26 06:08] LABS: BASOPHILS ABSOLUTE AUTO 0.04 K/mm3 (0.00-0.23); BASOPHILS PERCENT AUTO 1 % (0-2); EOSINOPHILS ABSOLUTE AUTO 0.41 K/mm3 (0.00-0.68); EOSINOPHILS PERCENT AUTO 7 % (0-6); Hematocrit 34.7 % (37.0-53.0); IMMATURE GRAN ABSOLUTE AUTO 0.02 K/mm3 (0.00-0.10); IMMATURE GRAN PERCENT AUTO 0 % (0-1); LYMPHOCYTES ABSOLUTE AUTO 1.13 K/mm3 (0.84-5.20); LYMPHOCYTES PERCENT AUTO 20 % (21-46); MONOCYTES ABSOLUTE AUTO 0.81 K/mm3 (0.16-1.47); MONOCYTES PERCENT AUTO 14 % (4-13); Mean Corpuscular HGB 31.1 pg (26.0-34.0); Mean Corpuscular HGB Conc 31.7 g/dL (31.5-36.5); Mean Corpuscular Volume 98 fL (80-100); Mean Platelet Volume 10.3 fL (9.1-12.4); NEUTROPHILS ABSOLUTE AUTO 3.25 K/mm3 (1.96-9.15); NEUTROPHILS PERCENT AUTO 57 % (41-73); Platelet Count 113 K/mm3 (150-400); RDW Coefficient Variation 14.7 % (11.7-14.2); RDW Standard Deviation 53.5 fL (35.1-46.3); Red Blood Cell Count 3.54 M/mm3 (4.30-5.90); White Blood Cell Count 5.66 K/mm3 (4.00-11.30)
[2024-03-26 06:37] LABS: Bun/Creatinine Ratio 27.6 (12.0-20.0); Calcium, Blood 8.9 mg/dL (8.5-10.1); Creatinine, Blood 1.85 mg/dL (0.60-1.20); Potassium, Blood 3.4 mmol/L (3.5-5.5)
[2024-03-26] MEDS ORDERED: Potassium Chloride 10 Meq Tablet SA PO ONE (07:15)
[2024-03-26 07:20] VITALS: BP 168/75
[2024-03-26 10:43] LABS: SARS-Cov-2 (COVID-19) PCR, MMC NEGATIVE (NEGATIVE)
[2024-03-26 14:18] VITALS: BP 163/64
--- NOTE | 2024-03-26 18:26 | NUR ---
PATIENT DISORIENTED AND RESPONDS TO VERBAL STIMULUS THIS AM, HOWEVER AT 1800 WAS A/OX2. THIS AM BECAME EASILY AGITATE WITH STAFF MEMBERS, BUT IS NOW PLEASANT AND FRIENDLY WITH STAFF WHILE EATING DINNER. HAS BEEN SLEEPING A MAJORITY OF THIS SHIFT. ABLE TO SWALLOW HIS MORNING MEDICATIONS 1 AT A TIME IN APPLESAUCE HOWEVER NEEDED DIRECTION. COVID SWAB WAS OBTAINED TODAY FOR PLACEMENT. 2L OXYGEN VIA NC IN USE. MARTINEZ DRAINING CLEAR YELLOW URINE. BED ALARM ON. NO OTHER CONCERNS AT THIS TIME.
[2024-03-26] MEDS ORDERED: QUEtiapine Fumarate 50 MG TAB PO SCH (21:00)
[2024-03-26 21:07] VITALS: BP 162/71
--- NOTE | 2024-03-26 21:53 | NUR ---
THIS RN ADMINISTERING MEDS FOR PRIMARY RN. SPIT OUT DSS AND VISBIOME; TOOK QUETIAPINE IN APPLESAUCE.
[2024-03-27 04:44] VITALS: BP 178/76
--- NOTE | 2024-03-27 04:54 | NUR ---
SHIFT SUMMARY: NO ACUTE EVENTS. IS A&O X 0, HAS BEEN AWAKE ALL NIGHT, TALKING NON STOP, HAVING NON-FRIGHTENING VISUAL HALLUCINATIONS. NO EVENTS ON TELEMETRY, SINUS AIDA IN THE 50'S. ON O2 @ 1 L/MIN NC WITH SATS 94-95%, WAS 90% ON RA. NO BEHAVIORS REQUIRING PRN MEDICATIONS OR RESTRAINTS. MARTINEZ DRAINING YELLOW URINE. CALL LIGHT IN REACH, BED ALARM ON, HAS NOT TRIED TO GET OOB.
[2024-03-27 07:25] VITALS: BP 168/89
[2024-03-27 15:39] VITALS: BP 156/94
--- NOTE | 2024-03-27 15:55 | NUR ---
SHIFT SUMMARY Pt remains alert to self this shift. Increased agitation this pm. IM Zyprexa given. Able to divert with playing cards while sitting up in recliner. Up with 2 person ast and gait belt. Very unsteady on feet. Resp even nonlaobred with 2L NC. Chronic cano intact with yellow output. Pain and safety maintained. Will continue to monitor this shift.
[2024-03-27 19:44] VITALS: BP 139/81
[2024-03-27 23:12] VITALS: BP 143/79
--- NOTE | 2024-03-27 23:41 | NUR ---
PATIENT FOUND ATTEMTPING TO SQUAT BESIDE THE BED AT 2305, STATED LOOKING FOR FISHING GEAR, BELIEVES TO BE GOING ON A FISHING TRIP. MANAGER TERMINAL AND THIS RN ATTEMPTED TO AID HIM, HIS LEGS GAVE OUT AND HE FELL FROM SQUATTED POSITION TO BUTTOCK WITH RIGHT KNEE BENT AND RIGHT FOOT BENEATH HIM. THREE STAFF MEMBERS USED GAIT BELT AND AIDED BACK ONTO BED. QUARTER-SIZED, SUPERFICIAL ABRASION TO RIGHT ANTERIOR KNEE. CLEANED. NO DRESSING NEEDED. INITIATED CAMERA SURVEILLANCE FOR SAFETY REASONS RELATED TO IMPAIRED SHORT-TERM MEMORY, IMPULSIVENESS AND SAFETY RELATED TO LINES. VITAL SIGNS OBTAINED. CHARGE NURSE NOTIFIED.
[2024-03-28 04:14] VITALS: BP 181/81
--- NOTE | 2024-03-28 04:30 | NUR ---
AUTOMATION CONTROL INTEGRATOR NOTIFIED OF SBP >170 FOR LABETOLOL ADMINISTRATION.
[2024-03-28 06:05] LABS: BASOPHILS ABSOLUTE AUTO 0.05 K/mm3 (0.00-0.23); BASOPHILS PERCENT AUTO 1 % (0-2); EOSINOPHILS ABSOLUTE AUTO 0.39 K/mm3 (0.00-0.68); EOSINOPHILS PERCENT AUTO 5 % (0-6); Hematocrit 35.7 % (37.0-53.0); Hemoglobin 11.1 g/dL (13.5-17.5); IMMATURE GRAN ABSOLUTE AUTO 0.02 K/mm3 (0.00-0.10); IMMATURE GRAN PERCENT AUTO 0 % (0-1); LYMPHOCYTES ABSOLUTE AUTO 1.31 K/mm3 (0.84-5.20); LYMPHOCYTES PERCENT AUTO 18 % (21-46); MONOCYTES ABSOLUTE AUTO 0.82 K/mm3 (0.16-1.47); MONOCYTES PERCENT AUTO 11 % (4-13); Mean Corpuscular HGB 30.7 pg (26.0-34.0); Mean Corpuscular HGB Conc 31.1 g/dL (31.5-36.5); Mean Corpuscular Volume 99 fL (80-100); Mean Platelet Volume 10.3 fL (9.1-12.4); NEUTROPHILS ABSOLUTE AUTO 4.74 K/mm3 (1.96-9.15); NEUTROPHILS PERCENT AUTO 65 % (41-73); Platelet Count 146 K/mm3 (150-400); RDW Coefficient Variation 14.6 % (11.7-14.2); RDW Standard Deviation 53.1 fL (35.1-46.3); Red Blood Cell Count 3.62 M/mm3 (4.30-5.90); White Blood Cell Count 7.33 K/mm3 (4.00-11.30)
[2024-03-28 06:22] LABS: Albumin, Blood 3.1 g/dL (3.4-5.0); Albumin/Globulin Ratio 0.9 (0.8-1.8); Bilirubin, Total 0.7 mg/dL (0.1-1.0); Bun/Creatinine Ratio 25.7 (12.0-20.0); Calcium, Blood 9.1 mg/dL (8.5-10.1); Creatinine, Blood 1.71 mg/dL (0.60-1.20); Globulin, Blood 3.6 g/dL (2.2-4.0); Potassium, Blood 3.6 mmol/L (3.5-5.5); Total Protein, Blood 6.7 g/dL (6.4-8.2)
[2024-03-28 07:32] VITALS: BP 146/62
--- NOTE | 2024-03-28 12:47 | NUR ---
Late Entry: Pt up in recliner this shift. Continues with nonsensical conversation with self. When entered room, pt with paranoia verbalizing he's going to get shot. Attempted to reorientate and assure he is safe. Pt grabbed scientific writer when attempting to give a bite of his lunch. Zyprexa IM given. Pt has not rested or slept this shift, MN shift or yesterday day shift. Warm blankets after breakfast, blinds closed with no resting period. Spoke with Dr. Cole this am. HS Seroqeul increased for tonight. Phone call to Dr. Buckley with above updates,
[2024-03-28] MEDS ORDERED: Haloperidol Lactate Inj. 5 MG/ML Injection IM PRN ×2 (13:05→16:40)
[2024-03-28 15:56] VITALS: BP 184/80
[2024-03-28] MEDS ORDERED: Haloperidol Lactate Inj. 5 MG/ML Injection IV PRN (17:00)
--- NOTE | 2024-03-28 17:53 | NUR ---
SHIFT SUMMARY Pt remains alert to self this shift. Continuous nonsensical talking without rest. Became combative x2 this pm. Meds given as ordered. Wrist restraint order obtained as pt continues to try to get up, pull on cano, combative with staff. Meds given as ordered. 1700 pt resting quietly with eyes closed. Verbally arousable. 1:1 feeder with minced honey thick diet. Cano intact with yellow output. Pain and safety maintained at this time. Will continue to monitor.
[2024-03-28] MEDS ORDERED: QUEtiapine Fumarate 100 MG Tab PO SCH (21:00)
[2024-03-28 22:31] VITALS: BP 164/112
[2024-03-29 04:07] VITALS: BP 170/108
--- NOTE | 2024-03-29 04:44 | NUR ---
SHIFT SUMMARY: TOMASA AROUSES EASILY AND RESPONDS APPROPRIATELY. HE IS TOLERATING PO INTAKE WELL THIS AM, DENIES PAIN, AND IS PLEASANT AND COOPERATIVE WITH CARE. MARTINEZ PATENT, COLLECTION BAG HANGING ABOVE GROUND. VIDEO MONITOR IN PLACE, CURRENTLY TRIALING WITHOUT WRIST RESTRAINTS. BP ELEVATED, MEDICATION ON DEC JUST OUTSIDE PARAMETERS. MAINTAINING O2 SATS ON 1 L VIA NC. HE IS LYING IN BED WITH THE CALL LIGHT IN REACH. WILL GIVE REPORT TO DAY SHIFT RN.
[2024-03-29 06:03] LABS: Hematocrit 34.3 % (37.0-53.0); Hemoglobin 10.8 g/dL (13.5-17.5); Mean Corpuscular HGB 30.8 pg (26.0-34.0); Mean Corpuscular HGB Conc 31.5 g/dL (31.5-36.5); Mean Corpuscular Volume 98 fL (80-100); Platelet Count 164 K/mm3 (150-400); RDW Coefficient Variation 14.6 % (11.7-14.2); RDW Standard Deviation 52.7 fL (35.1-46.3); Red Blood Cell Count 3.51 M/mm3 (4.30-5.90); White Blood Cell Count 6.17 K/mm3 (4.00-11.30)
[2024-03-29 06:29] LABS: Bun/Creatinine Ratio 25.9 (12.0-20.0); Calcium, Blood 9.2 mg/dL (8.5-10.1); Creatinine, Blood 1.58 mg/dL (0.60-1.20); Potassium, Blood 3.4 mmol/L (3.5-5.5)
[2024-03-29 07:48] VITALS: BP 169/64
[2024-03-29] MEDS ORDERED: Potassium Chloride 20 MEQ/15 ML UDC PO SCH (08:00)
[2024-03-29] MEDS ORDERED: HydrALAZINE HCl 20 MG / ML 1ML Vial IV PRN (12:10)
[2024-03-29 15:37] VITALS: BP 163/72
--- NOTE | 2024-03-29 18:07 | NUR ---
SUMMARY- PT A/O X1 TO SELF. PT SLEEPY TODAY BUT EASILY AROUSABLE. PT HAS BEEN CALM AND COOPERATIVE. PT IS A FEEDER, AIDED WITH BREAKFAST, ATE ALL OF HIS MINCED AND MOICED WITH SPOON FED THICK LIQ. PT SLEPT THROUGH LUNCH. AWOKE AROUND 1500 AGITATED FOR ABOUT 15MIN BUT FELL BACK TO SLEEP. PT'S BLOOD PRESURE HAS BEEN ELEVATED BUT HR SB 49-64, HELD COREG THIS AM AND PM. DEMEDEX, CLEAR LIGHT YELLOW PER CHRONIC MARTINEZ. OXYGEN 1L, 99%. LUNGS DIM RLL. UPPER CLEAR, OCC PROD COUGH. NO ASPIRATION NOTED WITH MEALS. PT DEPENDANT IN CARE. TURNED SIDE TO SIDE. DID NOT GET OOB THIS SHIFT BECAUSE HE WAS TOO SLEEPY AND MENTALLY UNSTABLE/EASILY AGGITATED. BLOOD SUGARS UNDER 140'S, NO COVERAGE INDICATED. WILL REPORT TO ELVIS BERGER
[2024-03-29] MEDS ORDERED: QUEtiapine Fumarate 100 MG Tab PO SCH (19:30)
[2024-03-29 20:44] VITALS: BP 157/66
[2024-03-30 00:06] VITALS: BP 147/73
--- NOTE | 2024-03-30 06:08 | NUR ---
SHIFT SUMMARY: Pt is admitted for acute on chronic respiratory failure with hypoxia and is a DNR. is alert and able to make some needs known. Does have confusion at baseline. And woke up asked what ship or base he was on. And would ask that even after being explained that he was not on a service hospital or ship. ADLs have been 2p for bed movements but did not get out of bed. Denies pain or discomfort when asked. Telly reports sinus in the 60s. Folly intact and draining clear yellow urine.
[2024-03-30 06:43] LABS: BASOPHILS ABSOLUTE AUTO 0.06 K/mm3 (0.00-0.23); BASOPHILS PERCENT AUTO 1 % (0-2); EOSINOPHILS ABSOLUTE AUTO 0.26 K/mm3 (0.00-0.68); EOSINOPHILS PERCENT AUTO 4 % (0-6); Hematocrit 36.1 % (37.0-53.0); Hemoglobin 11.4 g/dL (13.5-17.5); IMMATURE GRAN ABSOLUTE AUTO 0.02 K/mm3 (0.00-0.10); IMMATURE GRAN PERCENT AUTO 0 % (0-1); LYMPHOCYTES ABSOLUTE AUTO 1.53 K/mm3 (0.84-5.20); LYMPHOCYTES PERCENT AUTO 26 % (21-46); MONOCYTES ABSOLUTE AUTO 0.63 K/mm3 (0.16-1.47); MONOCYTES PERCENT AUTO 11 % (4-13); Mean Corpuscular HGB 31.4 pg (26.0-34.0); Mean Corpuscular HGB Conc 31.6 g/dL (31.5-36.5); Mean Corpuscular Volume 99 fL (80-100); Mean Platelet Volume 9.8 fL (9.1-12.4); NEUTROPHILS ABSOLUTE AUTO 3.48 K/mm3 (1.96-9.15); NEUTROPHILS PERCENT AUTO 58 % (41-73); Platelet Count 186 K/mm3 (150-400); RDW Coefficient Variation 14.7 % (11.7-14.2); RDW Standard Deviation 53.6 fL (35.1-46.3); Red Blood Cell Count 3.63 M/mm3 (4.30-5.90); White Blood Cell Count 5.98 K/mm3 (4.00-11.30)
[2024-03-30 07:14] LABS: Albumin/Globulin Ratio 0.8 (0.8-1.8); Bilirubin, Total 0.5 mg/dL (0.1-1.0); Calcium, Blood 9.2 mg/dL (8.5-10.1); Creatinine, Blood 1.77 mg/dL (0.60-1.20); Globulin, Blood 3.8 g/dL (2.2-4.0); Potassium, Blood 3.8 mmol/L (3.5-5.5); Total Protein, Blood 6.8 g/dL (6.4-8.2)
[2024-03-30 07:44] VITALS: BP 169/81
[2024-03-30] MEDS ORDERED: OLANZapine ODT 5 MG Tab MM PRN (16:20)
[2024-03-30 16:49] VITALS: BP 123/73
[2024-03-30] MEDS ORDERED: QUEtiapine Fumarate 100 MG Tab PO ONE (17:30)
[2024-03-30 18:46] LABS: SARS-Cov-2 (COVID-19) PCR, MMC NEGATIVE (NEGATIVE)
[2024-03-30 19:31] VITALS: BP 178/69
[2024-03-31 03:29] VITALS: BP 188/75
--- NOTE | 2024-03-31 06:43 | NUR ---
SHIFT SUMMARY: PATIENT CONFUSED AND ORIENTED TO SELF. RESTLESS, IMPULSIVE THROUGH NIGHT. HYPERTENSIVE WITH SYSTOLIC IN 180S, HYDRALAZINE IV GIVEN PRN. ATTEMPTED TO LEAVE BED MULTIPLE TIMES, SKIN TEAR FROM DISTURBED SCAB ON LEFT FLANK. WAITING FOR PLACEMENT AT MA.
[2024-03-31 07:24] VITALS: BP 161/84
--- NOTE | 2024-03-31 14:30 | NUR ---
SHIFT SUMMARY AND DISCHARGE PATIENT AROUSES, CONFUSED, HALLUCINATING AND PICKING AT THINGS IN THE AIR. PATIENT STATES THAT HE NEEDS TO DRIVE THE SHIP. [facility] WHERE PATIENT RESIDES. VA CONFIRMS THAT HE HALLUCINATES ESPECIALLY AT NIGHT AND AMBULATES IN A WHEELCHAIR. IV DC'D BEFORE DISCHARGE. REPORT GIVEN TO VA AND PATIENT TRANSFERED VIA GURNEY BACK TO THE [facility]. FAMILY CALLED AND PLEASED PATIENT WAS RETURNED TO THE [facility]
== END 2024-03-31 14:18 | DRG 871 ==
LOC: ER 10:25 → MEDS 12:56 → PCU 12:56 → MEDS 03-21 14:45
PROVIDERS: Emergency Medicine; Family Medicine; Student in an Organized Health Care Education/Training Program; ADMIT Hospitalist
DX: A41.9 Sepsis, unspecified organism (principal); G92.8 Other toxic encephalopathy; J18.9 Pneumonia, unspecified organism; J96.21 Acute and chronic respiratory failure with hypoxia; I50.33 Acute on chronic diastolic (congestive) heart failure; E87.0 Hyperosmolality and hypernatremia; I13.0 Hypertensive heart and chronic kidney disease with heart failure and stage 1 through stage 4 chronic kidney disease, or unspecified chronic kidney disease; N17.9 Acute kidney failure, unspecified; Z66 Do not resuscitate; R68.0 Hypothermia, not associated with low environmental temperature; R65.20 Severe sepsis without septic shock; R00.1 Bradycardia, unspecified; E16.2 Hypoglycemia, unspecified; R13.12 Dysphagia, oropharyngeal phase; E87.6 Hypokalemia; T44.7X5A Adverse effect of beta-adrenoreceptor antagonists, initial encounter; N18.30 Chronic kidney disease, stage 3 unspecified; D63.1 Anemia in chronic kidney disease; F03.90 Unspecified dementia, unspecified severity, without behavioral disturbance, psychotic disturbance, mood disturbance, and anxiety
CPT/HCPCS: 36415; 51702; 71045; 74230; 80048; 80053; 81001; 82947; 83605; 83880; 83930; 83935; 84300; 84443; 84484; 85025; 85027; 87040; 87086; 92526; 92610; 92611; 93005; 93010; 93306; 94640; 94664; 94760; 94762; 96365-59; 96367-59; 97110; 97162; 97164; 97165; 97166; 97530; 99285-25; A9270; C9113; J0360; J0456; J0696; J1630; J1650; J1940; J2405; J7042; J7050; J7060; J7070; J7120; U0002